=== PATIENT | male | born 1995 | race Caucasian/White ===

== ENCOUNTER 2017-09-16 17:15 | Emergency (ER) | payer OTHER, SELFPAY ==
[2017-09-16] MEDS ORDERED: ALPRAZolam 0.5 MG TAB ONE (17:20)
== END 2017-09-16 18:08 | disposition home or self-care (01) ==
LOC: BURERS 17:15
DX: F41.9 Anxiety disorder, unspecified (principal); R20.2 Paresthesia of skin
CPT/HCPCS: 99283